=== PATIENT | female | born 1945 | race Hispanic/Latino ===

== ENCOUNTER 2021-11-07 12:31 | Observation (INO) | payer MEDICARE ==
[2021-11-07] MEDS ORDERED: Aspirin Chewable 81 MG TAB ONE (13:18)
[2021-11-07] MEDS ORDERED: Labetalol HCl 100 MG/20 ML VIAL ONE (13:18)
[2021-11-07] MEDS ORDERED: Aspirin 325 MG TAB ONE (13:24)
[2021-11-07 13:30] LABS: #Eosinphils 0.1 thou/uL (0.0-0.7); #Lymphocytes 1.8 thou/uL (1.20-3.40); #Monocytes 0.5 thou/uL (0.11-0.59); #Neutrophils 3.9 thou/uL (1.40-6.50); %Basophils 0.7 % (0.0-1.0); %Eosinophils 1.6 % (0.0-10.0); %Lymphocytes 28.1 % (21.0-51.0); %Monocytes 8.1 % (0.0-10.0); %Neutrophils 61.5 % (42.0-75.0); Hemoglobin 14.3 g/dL (12.0-16.0); Mean Corpuscular HGB CONC 33.9 g/dL (32.0-36.0); Mean Corpuscular Hemoglobin 29.7 pg (27.0-31.0); Mean Corpuscular Volume 87.6 fL (78.0-98.0); Mean Platelet Volume 8.2 fL (7.4-10.4); Platelet Count 197 thou/uL (130-400); RBC Distribution Width 11.9 % (11.5-14.5); Red Blood Cell (RBC) Count 4.82 mill/uL (4.20-5.40); White Blood Cell (WBC) Count 6.3 thou/uL (4.8-10.8)
[2021-11-07 13:53] LABS: ALT (SGPT) 24 U/L (8-55); AST (SGOT) 24 U/L (5-34); Albumin 4.5 g/dL (3.4-4.8); Alkaline Phosphatase 81 U/L (40-110); Anion Gap 14 mmol/L (10-20); BUN (Urea Nitrogen) 15 mg/dL (9.8-20.1); Bilirubin, Total 0.4 mg/dL (0.2-1.2); Calc. Creatinine Clearance 0 mL/min (70-130); Calcium 9.3 mg/dL (7.8-10.44); Carbon Dioxide 26 mmol/L (23-31); Chloride 105 mmol/L (98-107); Globulin 3.2 g/dL (2.4-3.5); Glucose 90 mg/dL (83-110); Lipase 38 U/L (8-78); Potassium 3.6 mmol/L (3.5-5.1); Protein, Total 7.7 g/dL (5.8-8.1); Sodium 141 mmol/L (136-145)
[2021-11-07 18:18] LABS: Troponin I Less than 0.010 ng/mL (< 0.028)
[2021-11-07] MEDS ORDERED: HYDROcodone/Acetaminophen 7.5/325 mg Tablet PO PRN (18:51)
[2021-11-07] MEDS ORDERED: Nitroglycerin 0.4 MG TAB (25 Tab Bottle) SL PRN (18:51)
[2021-11-07] MEDS ORDERED: Acetaminophen 325 MG TAB PO PRN (18:51)
[2021-11-07] MEDS ORDERED: Senokot S 8.6-50 MG TAB PO PRN (18:51)
[2021-11-07] MEDS ORDERED: HYDROcodone/Acetaminophen 5/325 mg Tablet PO PRN (18:51)
[2021-11-07] MEDS ORDERED: Ondansetron PF 4 MG/2 ML Vial IVP PRN (18:51)
[2021-11-07] MEDS ORDERED: Bisacodyl 5 MG TAB PO PRN (18:51)
[2021-11-07] MEDS ORDERED: Melatonin 3 MG TAB PO PRN (18:55)
[2021-11-07] MEDS ORDERED: Enoxaparin Sodium 40 MG/0.4 ML SYRINGE SC SCH (19:00)
[2021-11-07] MEDS ORDERED: hydrALAZINE 20 MG/ML VIAL ONE (19:01)
[2021-11-07 19:55] VITALS: BMI 26.8
[2021-11-07] MEDS: Famotidine 20 MG TAB PO SCH (20:40)
[2021-11-07 21:29] LABS: Troponin I Less than 0.010 ng/mL (< 0.028)
[2021-11-08 06:46] LABS: #Eosinphils 0.1 thou/uL (0.0-0.7); #Lymphocytes 1.6 thou/uL (1.20-3.40); #Monocytes 0.5 thou/uL (0.11-0.59); #Neutrophils 3.3 thou/uL (1.40-6.50); %Basophils 0.3 % (0.0-1.0); %Eosinophils 1.8 % (0.0-10.0); %Monocytes 9.8 % (0.0-10.0); %Neutrophils 59.1 % (42.0-75.0); Hemoglobin 14.1 g/dL (12.0-16.0); Mean Corpuscular HGB CONC 32.7 g/dL (32.0-36.0); Mean Corpuscular Volume 88.5 fL (78.0-98.0); Platelet Count 201 thou/uL (130-400); RBC Distribution Width 11.9 % (11.5-14.5); Red Blood Cell (RBC) Count 4.85 mill/uL (4.20-5.40); White Blood Cell (WBC) Count 5.5 thou/uL (4.8-10.8)
[2021-11-08 07:07] LABS: ALT (SGPT) 19 U/L (8-55); AST (SGOT) 19 U/L (5-34); Albumin 3.8 g/dL (3.4-4.8); Alkaline Phosphatase 68 U/L (40-110); Anion Gap 12 mmol/L (10-20); BUN (Urea Nitrogen) 17 mg/dL (9.8-20.1); Bilirubin, Total 0.5 mg/dL (0.2-1.2); Calc. Creatinine Clearance 65 mL/min (70-130); Calcium 9.3 mg/dL (7.8-10.44); Carbon Dioxide 27 mmol/L (23-31); Chloride 107 mmol/L (98-107); Globulin 3.2 g/dL (2.4-3.5); Glucose 90 mg/dL (83-110); Potassium 3.8 mmol/L (3.5-5.1); Sodium 142 mmol/L (136-145)
[2021-11-08] MEDS: hydrALAZINE 20 MG/ML VIAL SLOW IVP PRN ×3 (08:15→23:29)
[2021-11-08] MEDS: Famotidine 20 MG TAB PO SCH ×2 (08:16→20:23)
[2021-11-08] MEDS ORDERED: ADENOSINE 60 MG/20 ML VIAL ONE (09:07)
[2021-11-08 13:58] LABS: SARS-CoV-2 PCR by NAA Not Detected (NotDetected)
[2021-11-08] MEDS ORDERED: Metoprolol Tartrate 25 MG TAB PO SCH ×3 (14:30→21:00)
[2021-11-08] MEDS ORDERED: Enoxaparin Sodium 40 MG/0.4 ML SYRINGE SC SCH (21:00)
[2021-11-09] MEDS: hydrALAZINE 20 MG/ML VIAL SLOW IVP PRN (03:44)
[2021-11-09] MEDS ORDERED: NIFEdipine XL 30 MG TAB PO SCH (09:00)
[2021-11-09] MEDS ORDERED: Metoprolol Tartrate 25 MG TAB PO SCH (09:00)
[2021-11-09] MEDS: Famotidine 20 MG TAB PO SCH (09:15)
[2021-11-09 11:58] VITALS: TEMP 98.1
[2021-11-09] MEDS ORDERED: cloNIDine 0.1 MG TAB PO SCH ×2 (12:30→21:00)
[2021-11-09 14:05] VITALS: BP 117/59
== END 2021-11-09 14:33 | disposition home or self-care (01) ==
LOC: ERS 12:31 → 2SW 17:31
PROVIDERS: ADMIT Family Medicine; ATTEND Internal Medicine
DX: I16.0 Hypertensive urgency (principal); R07.89 Other chest pain; I10 Essential (primary) hypertension; M79.631 Pain in right forearm; I08.2 Rheumatic disorders of both aortic and tricuspid valves; Z79.899 Other long term (current) drug therapy; Z88.1 Allergy status to other antibiotic agents; Z88.2 Allergy status to sulfonamides; Z88.8 Allergy status to other drugs, medicaments and biological substances; Z20.822 Contact with and (suspected) exposure to COVID-19
CPT/HCPCS: 71045; 78452; 80053; 83690; 83880; 84484 ×2; 85025; 93005 ×2; 93017; 93306; 96372 ×2; 96374; 96375; 96376 ×2; 99285; A9500; G0378 ×4; U0003; U0005; 36415; 84443; 93010; J0153; J0360; J1650

== ENCOUNTER 2022-06-09 14:40 | Outpatient (CLI) | payer OTHER | END 2022-06-09 14:41 | disposition home or self-care (01) | LOC: TBSIIMAG 14:40 | PROVIDERS: ATTEND Specialist | DX: H91.8X1 Other specified hearing loss, right ear (principal); I67.89 Other cerebrovascular disease; R93.0 Abnormal findings on diagnostic imaging of skull and head, not elsewhere classified | CPT/HCPCS: 70553 ==

== ENCOUNTER 2023-06-23 11:03 | Outpatient (CLI) | payer OTHER | END 2023-06-23 11:04 | disposition home or self-care (01) | LOC: BICMAMMO 11:03 | PROVIDERS: ATTEND Family Medicine | DX: Z12.31 Encounter for screening mammogram for malignant neoplasm of breast (principal); Z80.3 Family history of malignant neoplasm of breast | CPT/HCPCS: 77063; 77067 ==

== ENCOUNTER 2025-08-08 08:58 | Outpatient (CLI) | payer OTHER | END 2025-08-08 08:59 | disposition home or self-care (01) | LOC: ULT 08:58 | PROVIDERS: ATTEND Family Medicine | DX: I10 Essential (primary) hypertension (principal) | CPT/HCPCS: 76770; 93976 ==